=== PATIENT | male | born 1955 | race Caucasian/White ===

== ENCOUNTER 2021-09-25 12:49 | Outpatient (RCR) | payer MEDICARE, SELFPAY ==
[2021-09-25 13:14] LABS: Hemoglobin* 13.5 gm/dL (13.5-17.5)
== END 2021-09-26 11:10 | disposition home or self-care (01) ==
LOC: LAB 12:49
DX: D64.9 Anemia, unspecified (principal)
CPT/HCPCS: 36415; 85018

== ENCOUNTER 2023-01-16 14:15 | Outpatient (CLI) | payer MEDICARE, SELFPAY | END 2023-01-16 14:16 | disposition home or self-care (01) | LOC: MRI 14:18 | PROVIDERS: Visit Provider Internal Medicine | DX: C79.51 Secondary malignant neoplasm of bone (principal) | CPT/HCPCS: 73720; A9575 ==

== ENCOUNTER 2023-02-25 10:39 | Outpatient (CLI) | payer MEDICARE, SELFPAY ==
--- NOTE | 2023-02-25 11:00 | CRLHL7_ITS ---
For Patients: As a result of the Cures Act, medical imaging exams and procedure reports are released immediately into your electronic medical record. You may view this report before your referring provider. If you have questions, please contact your health care provider. Indication: Hip pain Technique: Pelvis and left hip 3 views Comparison: MRI 01/16/2023. Findings: Severe degenerative changes lumbar spine. No pathologic fracture. No cortical destruction or periostitis. Pelvic phleboliths. Impression: No pathologic fracture. Dictated by Chema Shanks MD @ 02/25/2023 1:24:16 PM (Electronically Signed)
== END 2023-02-25 10:40 | disposition home or self-care (01) ==
LOC: RAD 10:42
PROVIDERS: PCP Internal Medicine; Visit Provider Internal Medicine
DX: M25.552 Pain in left hip (principal)
CPT/HCPCS: 73502

== ENCOUNTER 2023-03-07 15:42 | Outpatient (CLI) | payer MEDICARE, SELFPAY ==
--- NOTE | 2023-03-07 16:30 | CRLHL7_ITS ---
For Patients: As a result of the Century Cures Act, medical imaging exams and procedure reports are released immediately into your electronic medical record. You may view this report before your referring provider. If you have questions, please contact your health care provider. INDICATION: Radiation therapy for malignant bone lesion. Pain. COMPARISON: MRI 16 January 2023 and plain film 25 February 2023. TECHNIQUE: Coronal T1 and STIR and axial T1 pelvis with axial coronal and sagittal PD fat-sat left hip sequences. 20 mL gadolinium intravenous contrast with axial and sagittal T1 fat-sat postcontrast sequences. FINDINGS: Left hip: Anatomic alignment. No fracture or bone lesion in the femur. Small cystic focus at the deep proximal margin of the vastus lateralis similar to before. Patchy and somewhat serpiginous low T1 high STIR and T2 signal in the acetabulum may be avascular necrosis changes. Small subchondral cyst at the outer acetabular margin. 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 Mild osteoarthritis right hip. Prominent degenerative disc disease with endplate sclerosis and edema most pronounced L4-5. IMPRESSION: No pathologic fracture. No obvious metastatic lesion. 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 Dictated by Edi Xie MD @ 03/10/2023 4:05:57 PM (Electronically Signed)
== END 2023-03-07 15:43 | disposition home or self-care (01) ==
LOC: MRI 15:44
PROVIDERS: PCP Internal Medicine; Visit Provider Internal Medicine
DX: M25.552 Pain in left hip (principal); M16.0 Bilateral primary osteoarthritis of hip; C79.51 Secondary malignant neoplasm of bone
CPT/HCPCS: 73723; A9575

== ENCOUNTER 2023-03-27 08:32 | Outpatient (RCR) | payer MEDICARE, SELFPAY ==
[2021-10-09 18:42] LABS: Hemoglobin* 13.2 gm/dL (13.5-17.5)
[2021-11-02 13:48] LABS: Hemoglobin* 13.1 gm/dL (13.5-17.5)
--- NOTE | 2022-02-08 10:22 | ONC.NURNOTE ---
Received order for labs and phlebotomies from [facility]. All orders can be done through our lab department. Orders given to lab, and patient aware of this being done there. Patient notes that he did this there most of the year, and has no questions at this time.
[2022-02-25 13:01] LABS: Hemoglobin* 14.7 gm/dL (13.5-17.5)
[2022-02-25 13:52] LABS: Iron* 272 ug/dL (49-181)
[2022-02-25 14:02] LABS: Percent Iron Saturation 92 % (20-50); Total Iron Binding Capacity 294 ug/dL (261-462)
[2022-02-25 14:29] LABS: Ferritin* 98.4 ng/mL (17.9-464.0)
[2022-06-12 11:24] LABS: Hemoglobin* 14.8 gm/dL (13.5-17.5)
[2022-06-12 12:19] LABS: Iron* 187 ug/dL (49-181)
[2022-09-23 11:02] LABS: Hemoglobin* 14.5 gm/dL (13.5-17.5)
[2023-01-21 12:33] LABS: Hemoglobin* 15.8 gm/dL (13.5-17.5)
[2023-01-21 13:00] LABS: Iron* 287 ug/dL (49-181)
[2023-01-21 13:11] LABS: Percent Iron Saturation 92 % (20-50); Total Iron Binding Capacity 311 ug/dL (261-462)
[2023-02-10 11:59] LABS: Hemoglobin* 14.7 gm/dL (13.5-17.5)
[2023-02-28 13:25] LABS: Hemoglobin* 13.1 gm/dL (13.5-17.5)
[2023-03-27 09:00] LABS: Hemoglobin* 13.8 gm/dL (13.5-17.5)
[2023-03-27 09:18] LABS: Iron* 93 ug/dL (49-181)
[2023-03-27 09:27] LABS: Percent Iron Saturation 24 % (20-50); Total Iron Binding Capacity 391 ug/dL (261-462)
[2023-03-27 09:53] LABS: Ferritin* 15.7 ng/mL (17.9-464.0)
== END 2023-12-31 14:47 | disposition home or self-care (01) ==
LOC: LAB 08:32
PROVIDERS: Visit Provider Internal Medicine
DX: D64.9 Anemia, unspecified (principal); E83.119 Hemochromatosis, unspecified; C79.51 Secondary malignant neoplasm of bone; I89.0 Lymphedema, not elsewhere classified
CPT/HCPCS: 36415; 82728; 83540; 83550; 85018; 99195

== ENCOUNTER 2023-12-10 09:45 | Outpatient (RCR) | payer MEDICARE, SELFPAY | END 2024-04-08 23:59 | disposition home or self-care (01) | PROVIDERS: PCP Internal Medicine; Visit Provider Orthopaedic Surgery | DX: M53.3 Sacrococcygeal disorders, not elsewhere classified (principal); Z96.642 Presence of left artificial hip joint; M25.552 Pain in left hip; Z51.89 Encounter for other specified aftercare | CPT/HCPCS: 97110; 97116; 97140; 97162 ==